=== PATIENT | female | born 2000 | race Caucasian/White ===

== ENCOUNTER 2024-09-30 13:20 | Emergency (ER) | payer BC, SELFPAY ==
[2024-09-30 13:24] VITALS: BP 138/88
--- NOTE | 2024-09-30 14:22 | EDRN ---
Ariel HERNANDEZ in room w/ pt at this time.
[2024-09-30 14:30] VITALS: BP 122/73; BMI 27.0
--- NOTE | 2024-09-30 14:35 | ED.GENMED ---
History of Present Illness
<Ofelia Brian PA-C - Last Filed: 09/30/24 17:21>
General
Chief Complaint: Abdominal Symptoms
Source: patient
Exam Limitations: none
Time Seen by Provider: 09/30/24 14:11
Nursing documentation reviewed up to this point in time: agreed with
History of Present Illness
History of Present Illness:
24-year-old female presenting to the emergency department for evaluation of nausea, vomiting, diarrhea. Patient states for the past 2 days she has been unable to keep any food or liquid down. She has had very frequent vomiting and diarrhea over
the past 2 days. She feels dehydrated. She does have intermittent headaches. She denies any fevers, abdominal pain, dysuria.
Of note�patient does ports that approximately 2 months ago she noticed a bull's-eye rash on her left lower flank/hip. Rash has for the most part dissipated. However�she does states she has had intermittent joint pain, headaches and fatigue since
noticing this rash. She is concerned she may have Lyme disease.
Patient did see her primary care provider yesterday who gave her prescription to have a Lyme disease test done although they did not perform 1. They did not start her on prophylactic antibiotics
Past History
<Ofelia Brian PA-C - Last Filed: 09/30/24 17:21>
Past History
ED Past Medical History: None
ED Past Surgical History: None
Social History
Tobacco: Non-smoker
Alcohol: None
Review of Systems
<Ofelia Brian PA-C - Last Filed: 09/30/24 17:21>
Review of Systems
Allergies reviewed?: Yes
All Other Systems: ROS reviewed and negative except as documented in HPI and ROS
Phy Exam
<Ofelia Brian PA-C - Last Filed: 09/30/24 17:21>
Physical Exam
Physical Exam:
Vitals: Mildly tachycardic on arrival, otherwise vital signs stable. Afebrile
General: Patient is well appearing, no acute distress. Nontoxic appearing
Skin: Warm and dry, no rashes or lesions
Head: Normocephalic, atraumatic
Eyes: Sclera nonicteric. EOMs intact. No nystagmus.
Throat: Dry mucous membranes. Protecting airway
Neck: Normal ROM, no cervical spine tenderness, no meningismus
Cardiac: Regular rate and rhythm, no murmurs.
Pulm: Normal respiratory effort, no wheezes, rales, rhonchi heard on exam.
Abdomen: Abdomen soft. No abdominal tenderness. No CVA tenderness.
Extremities: No evidence of cyanosis or edema
Neuro: AAOx3. Grossly intact.
Psychiatric: Normal affect.
Course
<Ofelia Brian PA-C - Last Filed: 09/30/24 17:21>
Orders/Labs/Results
Orders:
Orders
09/30/24 14:21
IV Insert/Care/Rem.- Treatment PRN
09/30/24 14:25
Test Result ONCE
09/30/24 14:26
0.9% Sodium Chloride 1000 ml [Nss] 1,000 ml IV BOLUS
Ondansetron Injectable [Zofran] 4 mg IV NOW STA
09/30/24 14:33
Complete Blood Count/With Diff Urgent
Comprehensive Metabolic Panel Urgent
HCG, Serum Qualitative Screen Urgent
Lipase Urgent
Lyme Progressive Urgent
09/30/24 15:45
Electrocardiogram (*1) Urgent
Reason for Study: Abdominal Pain
EKG- Treatment ONCE
09/30/24 15:56
Troponin I Urgent
Babesia Smear [Blood Parasites] Urgent
MARYNANE Source: Blood/Venous
Specimen Description:
Abnormal Lab Results
09/30/24
14:33
MCHC 32.7 L g/dL
(33.0-37.0)
RDW 15.5 H %
(11.5-14.5)
Absolute Neuts (auto) 7.7 H 10^3/uL
(1.4-6.5)
Absolute Monos (auto) 0.7 H 10^3/uL
(0.1-0.6)
Lymphocytes % 19.6 L %
(20.5-51.1)
AST 37 H U/L
(14-36)
ALT 41 H U/L
(0-35)
Total Protein 8.4 H g/dl
(6.3-8.2)
Albumin 5.2 H g/dl
(3.5-5.0)
09/30/24 14:33
09/30/24 14:33
Vital Signs
Pulse: 84
Initial and Last Documented VS:
Initial Vital Signs
Temp Pulse Resp BP Pulse Ox
98.6 F 108 18 138/88 99
09/30/24 13:24 09/30/24 13:24 09/30/24 13:24 09/30/24 13:24 09/30/24 13:24
Last Documented Vital Signs
Temp Pulse Resp BP Pulse Ox
98.6 F 104 28 121/71 99
09/30/24 13:24 09/30/24 16:03 09/30/24 16:03 09/30/24 16:04 09/30/24 16:04
<Nathan Hernandez MD - Last Filed: 09/30/24 16:12>
Orders/Labs/Results
Orders:
Orders
09/30/24 14:21
IV Insert/Care/Rem.- Treatment PRN
09/30/24 14:25
Test Result ONCE
09/30/24 14:26
0.9% Sodium Chloride 1000 ml [Nss] 1,000 ml IV BOLUS
Ondansetron Injectable [Zofran] 4 mg IV NOW STA
09/30/24 14:33
Complete Blood Count/With Diff Urgent
Comprehensive Metabolic Panel Urgent
HCG, Serum Qualitative Screen Urgent
Lipase Urgent
Lyme Progressive Urgent
09/30/24 15:45
Electrocardiogram (*1) Urgent
Reason for Study: Abdominal Pain
EKG- Treatment ONCE
09/30/24 15:56
Troponin I Urgent
Babesia Smear [Blood Parasites] Urgent
MARYANNE Source: Blood/Venous
Specimen Description:
Abnormal Lab Results
09/30/24
14:33
MCHC 32.7 L g/dL
(33.0-37.0)
RDW 15.5 H %
(11.5-14.5)
Absolute Neuts (auto) 7.7 H 10^3/uL
(1.4-6.5)
Absolute Monos (auto) 0.7 H 10^3/uL
(0.1-0.6)
Lymphocytes % 19.6 L %
(20.5-51.1)
AST 37 H U/L
(14-36)
ALT 41 H U/L
(0-35)
Total Protein 8.4 H g/dl
(6.3-8.2)
Albumin 5.2 H g/dl
(3.5-5.0)
09/30/24 14:33
09/30/24 14:33
Vital Signs
Initial and Last Documented VS:
Initial Vital Signs
Temp Pulse Resp BP Pulse Ox
98.6 F 108 18 138/88 99
09/30/24 13:24 09/30/24 13:24 09/30/24 13:24 09/30/24 13:24 09/30/24 13:24
Last Documented Vital Signs
Temp Pulse Resp BP Pulse Ox
98.6 F 104 28 121/71 99
09/30/24 13:24 09/30/24 16:03 09/30/24 16:03 09/30/24 16:04 09/30/24 16:04
<Ofelia Brian PA-C - Last Filed: 09/30/24 17:21>
MDM/Problems Addressed
Differential Diagnosis Includes:
Not limited to: Viral gastroenteritis, colitis, Lyme disease, babesiosis, IBS flare, myocarditis, etc.
MDM/Problems Addressed:
24-year-old female presenting with present nausea, vomiting, diarrhea over the past 2 days. Also with history of bull's-eye rash consistent with erythema migrans month ago on left hip/lower flank. She has had intermittent joint pain, headache,
fatigue since although has not seen a medical provider. Patient is stable vital. She is afebrile. On exam�patient well-appearing in no apparent distress. Abdomen is soft and nontender. No focal neurologic deficits. Cardio/pulmonary assessment
unremarkable. There is no obvious remaining erythema migrans rash. Picture very consistent with classic EM rash from Lyme's. Although�do suspect patient's nausea, vomiting, diarrhea currently is from a viral GI infection. Given benign abdominal
exam�no indication for abdominal CT at this time. Will check labs. Will check Lyme test. Will give IV fluids and Zofran. Will reassess.
Labs reviewed. No leukocytosis. CMP without any clinically significant abnormalities-only very mild elevation in LFTs. Lipase is normal. test negative. A troponin was obtained which was undetectable. EKG without acute ischemic
changes. Case was discussed with infectious disease doctor, Dr. Bear who did recommend treatment for Lyme pending results. Also will send blood smear for babesiosis, as well.
Patient tolerated water and crackers without vomiting. Patient remains stable. Patient stable for discharge with close return precautions. Will send rx for doxycycline to treat Lyme. Case seen with attending physician.
Chronic conditions affecting care:
IBS
Acute Exacerbation and/or Progression of Chronic Illness:
N/A
<Ofelia R. Derham, PA-C - Last Filed: 09/30/24 17:21>
*Pulse Oximetry
Patient hypoxic: no
*EKG
Interpreted by ED Provider?: Yes
EKG Intrepretation Date: 09/30/24
Interpretation: normal
Comparison EKG: changes noted
Heart Rate: 87
Rate: normal
Rhythm: sinus
[place]: normal axis
QRS Pattern: low voltage
Ischemia: no ischemia
*Critical Care Note
Total Time (30-74mins, 75-104mins- exclusive of procedures): Not Applicable
<Ofelia Brian PA-C - Last Filed: 09/30/24 17:21>
Patient Management
Discussion with other providers: Service Or Work Dispatcher Chief (Infectious Disease - Dr. Bear)
ED Attending Note
<Ofelia Brian PA-C - Last Filed: 09/30/24 17:21>
-
Portions of this chart may have been created with voice recognition software.� Occasional wrong word or��sound alike� substitutions may have occurred due to the inherent limitations of voice recognition software.
<Nathan Hernandez MD - Last Filed: 09/30/24 16:12>
ED Attending Note
Patient seen and examined by attending physician: Yes
I performed the substantive portion of visit, reviewed & personally made and approve the management plan that is documented in note by myself or MARIELENA.: Yes
ED Attending Note:
24-year-old female complaining of ongoing GI issues for over a month. Initially has had some intermittent nausea occasional episodes of vomiting. Much worse the last 2 days. Also pointed out she had a rash on her thigh in mid July. Has had
joint pain myalgias and headache since then.
On exam patient is nontoxic in no distress. Warm and dry. Perfusing well. Lungs clear and equal. Heart borderline tachycardic and regular no murmur. Abdomen is soft and nontender. No liver or spleen palpable. No rebound or guarding. No mass
or hernia. She has no obvious rash except for a very faint ecchymotic appearing rash to the left pelvic area consistent where the spot where this previous rash, which appears to be an ECM rash based on the picture appeared. She has no CVA
tenderness warm and dry.
Impression clinically this was an ECM rash in mid July. Some of her current symptoms would be consistent with ongoing Lyme disease however her GI component may be a secondary viral infection. Plan is fluids Zofran we will start doxycycline 1
p.o. twice daily x 21 days. Discussed with ID. Will add add babesiosis smear for completeness.
Discharge Plan
Departure
Patient Disposition: Home (Routine Discharge)
Date of Disposition: 09/30/24
Time of Disposition: 17:19
Patient with high blood pressure during this ER visit?: No
Condition: Good
Covid-19: Not Applicable
Discharge Problem:
Nausea, vomiting and diarrhea, Erythema migrans (Lyme disease)
Instructions: Lyme disease, Acute Nausea and Vomiting
Prescriptions:
New
doxycycline monohydrate 100 mg capsule
100 mg PO BID 21 Days Qty: 42 0RF
ondansetron 4 mg tablet,disintegrating
4 mg PO Q8H PRN (Reason: nausea and vomiting) Qty: 10 0RF
No Action
multivitamin [Daily Multiple] 1 EACH tablet
1 ea PO DAILY
zinc 15 MG tablet
15 mg PO DAILY
thiamine HCl (vitamin B1) [Vitamin B-1] 100 MG tablet
100 mg PO DAILY
olanzapine 2.5 MG tablet
2.5 mg PO HS
ondansetron 4 MG tablet,disintegrating
4 mg PO TIDPRN PRN (Reason: nausea/vomiting) Qty: 20 0RF
Referrals:
Lisa Martins MD [Family Provider] -
Marianna Carlson DO [Active] - Next open appointment
Activity Restrictions/Additional Instructions:
RETURN TO THE EMERGENCY DEPARTMENT WITH ANY FEVERS, CHILLS, SEVERE ABDOMINAL PAIN, INTRACTABLE NAUSEA/VOMITING, SIGNS OF SEVERE DEHYDRATION, WORSENING IN CURRENT SYMPTOMS, OR ANY OTHER CONCERNS
-As discussed�we will contact you if the Lyme disease or babesiosis test are positive.
-You should start taking doxycycline twice a day for the next 21 days to cover for Lyme infection. You can wait a few days to start this medication to ensure your GI symptoms have improved.
-You can take Zofran for persistent nausea/vomiting as needed.
-Follow-up with primary care for further evaluation/management to ensure that symptoms are improving. The contact information has been provided for you for your GI doctor.
Monitor your symptoms closely return urgency department any acute worsening/new symptoms or any other concerns
Interventions
Interventions:
*Risk Screen - Suicide Last Done: 09/30/24 14:30
*General Assessment Last Done: 09/30/24 14:30
*Neglect/Abuse Screening Last Done: 09/30/24 14:30
ED- Fall Risk Assessment Last Done: 09/30/24 14:30
*ED COVID-19 Vaccine History Last Done: 09/30/24 14:30
OC-[id number] Assessment Last Done: 09/30/24 14:30
Discharge Date and Time
Print Language: MOLDOVAN
[2024-09-30 14:49] LABS: % Basophils 0.3 % (0-2); % Eosinophils 0.8 % (0-6); % Immature Granulocytes 0.4 % (0-0.5); % Lymphocytes 19.6 % (20.5-51.1); % Monocytes 6.9 % (1.7-9.3); Absolute Eosinophils 0.1 10^3/uL (0-0.7); Absolute Lymphocytes 2.1 10^3/uL (1.2-3.4); Absolute Monocytes 0.7 10^3/uL (0.1-0.6); Absolute Neutrophils 7.7 10^3/uL (1.4-6.5); Hemoglobin 14.7 g/dL (12.0-16.0); Mean Corp Hgb Conc. 32.7 g/dL (33.0-37.0); Mean Corpuscular Hgb 28.1 pg (27.0-31.0); Mean Corpuscular Volume 85.9 fL (81.0-99.0); Mean Platelet Volume 8.7 fL (7.4-10.4); Nucleated Red Blood Cells % 0 %; Platelet Count 381 10^3/uL (130-400); Red Blood Cell Count 5.24 10^6/uL (4.20-5.40); Red Cell Dist. Width 15.5 % (11.5-14.5); White Blood Cell Count 10.7 10^3/uL (4.8-10.8)
[2024-09-30 15:00] VITALS: BP 121/84
[2024-09-30 15:00] LABS: ALT (SGPT) 41 U/L (0-35); AST (SGOT) 37 U/L (14-36); Albumin 5.2 g/dl (3.5-5.0); Alkaline Phosphatase 99 U/L (38-126); Blood Urea Nitrogen 11 mg/dl (7-17); Carbon Dioxide 24 mmol/L (22-30); Chloride 104 mmol/L (98-107); Glucose 96 mg/dl (70-99); Lipase 130 U/L (23-300); Potassium 4.2 mmol/L (3.5-5.1); Sodium 140 mmol/L (135-145); Total Bilirubin 0.6 mg/dl (0.2-1.3); Total Protein 8.4 g/dl (6.3-8.2); eGFR > 60.00
[2024-09-30 15:05] LABS: HCG, Serum Qualitative Screen Negative
[2024-09-30] MEDS: NSS 1000 IV (15:31)
[2024-09-30] MEDS: ZOFRAN 4 MG IV (15:31)
--- NOTE | 2024-09-30 15:33 | EDRN ---
Dr. Hernandez in room w/ pt at this time.
--- NOTE | 2024-09-30 15:52 | EDRN ---
Dr. Hernandez in room w/ pt at this time.
[2024-09-30 16:04] VITALS: BP 121/71
--- NOTE | 2024-09-30 16:06 | EDRN ---
Ordered trop and parasites drawn and sent to lab.
[2024-09-30 16:35] LABS: Troponin I < 0.012 ng/ml
--- NOTE | 2024-09-30 16:51 | EDRN ---
Ariel HERNANDEZ in room w/pt at this time.
[2024-09-30 17:01] VITALS: BP 112/89
== END 2024-09-30 17:41 | disposition home or self-care (01) ==
LOC: EMR 13:20
PROVIDERS: Physician Assistant; EMERGENCY PHYSICIAN Emergency Medicine; FAMILY PHYSICIAN Emergency Medicine
DX: A26.0 Cutaneous erysipeloid (principal); A69.20 Lyme disease, unspecified; R11.2 Nausea with vomiting, unspecified; R19.7 Diarrhea, unspecified
CPT/HCPCS: 96374; 96361; 99284; 80053; 83690; 84484; 84703; 85025; 86618; 87015; 87207; 93005

== ENCOUNTER → 2024-10-29 07:32 | Outpatient (REF) | payer BC, SELFPAY | LOC: HWRAD 07:32 | PROVIDERS: ATTENDING PHYSICIAN Internal Medicine Gastroenterology; FAMILY PHYSICIAN Nurse Practitioner Adult Health | DX: R74.8 Abnormal levels of other serum enzymes (principal) | CPT/HCPCS: 76700 ==

== ENCOUNTER 2024-11-24 06:31 | Day surgery (SDC) | payer BC, SELFPAY | END 2024-11-24 16:23 | disposition home or self-care (01) | LOC: GI 06:31 | PROVIDERS: ATTENDING PHYSICIAN Internal Medicine Gastroenterology | DX: R19.7 Diarrhea, unspecified (principal); R19.4 Change in bowel habit; R11.2 Nausea with vomiting, unspecified; R12 Heartburn | CPT/HCPCS: 45380; 43239; 88305 ==